=== PATIENT | male | born 1945 | race Caucasian/White ===

== ENCOUNTER 2018-07-05 05:51 | Inpatient (IN) ==
[2018-07-05] MEDS ORDERED: Metoprolol Tartrate 25 MG Tablet PO ONE (06:12)
[2018-07-05] MEDS ORDERED: Chlorhexidine Gluconate 2% 1 Pack (2 Cloths) TOPICAL ONE (06:12)
[2018-07-05] MEDS ORDERED: Sodium Chlor 0.9% Inj 500 ML IV.SIG SCH (07:00)
[2018-07-05] MEDS ORDERED: Vancomycin Inj 1,000 MG in Sodium Chlor 0.9% Inj 250 ML IV.SIG SCH (07:00)
[2018-07-05] MEDS ORDERED: Propofol Inj 500 MG/50 ML Vial ONE ×4 (07:17→13:31)
[2018-07-05] MEDS ORDERED: Gelatin Size 100 Topical Foam ONE (07:38)
[2018-07-05] MEDS ORDERED: Thrombin Topical Soln 5,000 UNIT Vial TOPICAL ONE (07:38)
[2018-07-05] MEDS ORDERED: Succinylcholine Inj 100 MG/5 ML Syringe IV.PUSH ONE (08:29)
[2018-07-05] MEDS ORDERED: Sodium Chlor 0.9% Inj 250 ML IV.CONT ONE (08:29)
[2018-07-05] MEDS ORDERED: Lidocaine PF 1% Inj 5 ML Syringe OTHER ONE (08:29)
[2018-07-05] MEDS ORDERED: Glycopyrrolate Inj 1 MG/5 ML Syringe IV.PUSH ONE (08:29)
[2018-07-05] MEDS ORDERED: Phenylephrine/NS 1000 MCG/10ML Syringe IV.PUSH ONE (08:29)
[2018-07-05] MEDS ORDERED: Bupivacaine/Epinephrine Inj 0.25% 50 ML Vial ONE (08:32)
[2018-07-05] MEDS ORDERED: Bupivacaine Liposomal PF 1.3% Inj 20 ML Vial ONE (08:52)
[2018-07-05 12:23] LABS: ABG Base Excess -2.5 mmol/L (-2-2); ABG PCO2 39 mmHg (38-42); ABG PO2 172 mmHG (61-120)
[2018-07-05] MEDS ORDERED: [UNRECOGNIZED DRUG - OTHER] IRRIGATION ONE ×3 (13:01)
[2018-07-05] MEDS ORDERED: SOD CHLORIDE 0.9% IRRIGATION ONE ×3 (13:01)
[2018-07-05] MEDS ORDERED: Acetaminophen 325 MG Tablet PO PRN (13:58)
[2018-07-05] MEDS ORDERED: Bisacodyl 10 MG Supp RECTAL PRN (13:58)
[2018-07-05] MEDS ORDERED: Bupivacaine Liposomal PF 1.3% Inj 20 ML Vial INFILTRATN ONE (13:59)
[2018-07-05] MEDS: Sod Chloride 0.9% Inj 1,000 ML IV.SIG SCH (14:44)
--- NOTE | 2018-07-05 14:55 | P.PCN ---
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
--- NOTE | 2018-07-05 15:58 | MP ---
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 PROCEDURE PERFORMED: Bilateral C5, C6, C7 and T1 laminectomies with foraminotomies with posterolateral fusion with spinal instrumentation from C5 through T1. SURGEON: Mehdi Terrell MD [employer] SUPERVISOR: mechanical engineering technician AMADO. ANESTHESIA: General endotracheal. ESTIMATED BLOOD LOSS: 400 mL. REPLACEMENT: None needed. COMPLICATIONS: None. PATHOLOGY: None sent. DISPOSITION: To PACU, stable. INDICATIONS FOR PROCEDURE: This is a 73-year-old white male who suffered with the above-stated diagnosis. Radiographic evaluation was consistent with the above-stated diagnosis. His clinical neurological presentation and examination correlated with the above-stated diagnosis. In any case, therapeutic options were discussed with the patient and his . The risks, benefits, limitations, complications, and alternatives of the above-stated operation were discussed and enumerated and no guarantees were afforded. He understood this and requested surgical intervention. Informed consent was obtained and the patient was brought to the operating room electively. PROCEDURE: The patient was brought to the operating room on a cart. He was intubated and after a sufficient plane of general endotracheal anesthesia was obtained, a Fernando catheter was placed as well as sequential compression devices. His head was placed in the Ring-Ke 3-point head holding fixation device. Throughout the procedure, intraoperative spinal cord monitoring was used to monitor the integrity of the neuraxis, which remained stable throughout the entire procedure. This was initiated following induction and prior to positioning the patient as well as throughout the entire operation and remained stable throughout. The patient was then placed in the prone position on a Rafat table. Pressure points were padded appropriately. He was secured to the table using the Ring headholder. In this way, rigid fixation was obtained. His occiput and posterior cervical region as well as upper thoracic region was then shaved, prepped and draped in a sterile fashion. An appropriate timeout procedure was performed. It should be noted that C-arm fluoroscopy was used throughout the procedure for localization as well as progress of placement of the spinal instrumentation. In any case, using C-arm fluoroscopy, we documented the appropriate level of the incision. An incision was made in the midline after infiltrating the skin and subcutaneous tissue with 10 mL of 0.25% bupivacaine with epinephrine. Prior to this, an appropriate timeout procedure was performed. The incision was brought down from C3 to T2 in the midline. The incision was brought down through the skin and subcutaneous tissue. Hemostasis was obtained with the use of monopolar coagulation. The fascia was incised and subperiosteal dissection was performed, stripping the paraspinal muscles laterally, exposing the spinous process and lamina and lateral masses of C4, C5, C6, C7, T1 and the uppermost portion of T2 bilaterally. Soft tissues were retracted using self-retaining retractors. C-arm fluoroscopy documented that we indeed exposed the appropriate levels. Lateral masses and facets were then decorticated using the ISBX electric drill and a round carbide bur. This was done from the inferior portion of C4 to the inferior portion of T1 to the top of T2 bilaterally. Lateral mass screws were then placed into the lateral masses of C5 and C6, and this was done bilaterally. Then, pedicle screws were placed into the pedicles of T1 bilaterally. Contoured rods were bent and placed through the heads of the screw and locking screws were then placed and in this way, rigid spinal fixation was obtained bilaterally. C-arm fluoroscopy assisted and aided in placement of the spinal instrumentation. It assisted us in guidance. Then, troughs were drilled using the ISBX electric drill and a matchstick carbide bur from C5 through T1 and an en bloc laminectomy was performed, removing the spinous process and lamina bilaterally of C5, C6, C7, and T1. Foraminotomies were then performed using 2 mm thin footplate Kerrison rongeurs. This was done at each of these levels. The dura elevated, the area decompressed and appeared to be adequately decompressed. Epidural bleeding was controlled with use of bipolar coagulation and Surgiflo and thrombin-soaked Gelfoam. It appeared that an adequate decompression was performed. The laminectomized bone was denuded of all soft tissue and with a bone mill, was morcellized and combined with 15 mL of cancellous bone allografts and mixed together. These were then placed posterolaterally overlying the lateral masses and facets from C4 to the top of T2. Prior to placing the bone graft, the wound was then copiously irrigated with warm bacitracin irrigation and hemostasis was meticulous. Through a separate stab wound, a #7 flat JERROD drain was placed into the epidural space and connected to closed drainage suction. It was secured to the skin using a 3-0 nylon suture. The wound was then approximated in layers. The muscle was approximated using multiple interrupted sutures of 0 Vicryl. The fascia was then approximated using multiple interrupted sutures of 0 Vicryl. The subcutaneous tissue was then approximated using multiple inverted interrupted sutures of 2-0 Vicryl. Skin was then approximated with skin adam. Antibiotic ointment and a sterile dressing were applied. Prior to closing the wound, the muscle was infiltrated as well as the subcutaneous tissue with 20 mL of Exparel diluted with 20 mL of normal saline and this was infiltrated in the muscles as well as subcutaneous tissue surrounding the wound bilaterally. In any case, antibiotic ointment and sterile dressing were applied. At the completion of the procedure, sponge count, needle count as well as cottonoid count was correct. Estimated blood loss was 100 mL. REPLACEMENT: None needed. COMPLICATIONS: Apparently none. The patient tolerated the procedure well and was taken directly to the postanesthetic care unit stable. It should be noted that the spinal instrumentation used in the case was the [employer] HyperLOX System. MD CAMILLE Shah/cassandra , 03:08 PM , 03:21 PM
--- NOTE | 2018-07-05 16:13 | P.CONCC ---
History of Present Illness Service: Critical care Consult date: 07/05/18 Requesting Physician: Mehdi Terrell Reason for Consult: s/p posterior cervical laminectomy Primary Care Provider: Elidia Guido MD, R2 Chief Complaint: Cervical stenosis with myelopathy History of Present Illness: Patient is a 73-year-old male with past medical history significant for hypertension, GERD, dyslipidemia, arthritis, cervical stenosis with myelopathy, daily alcohol use was admitted to Dr. Terrell service today to undergo posterior cervical laminectomy. Patient underwent Bilateral C5, C6, C7 and T1 laminectomies with foraminotomies, posterolateral fusion with spinal instrumentation from C5 through T1. Anesthesia records revealed EBL was 1 L, urine output was 150 mL in the OR. Received 3 L of crystalloids. Post procedure patient was extubated in the PACU. Care medicine was consulted with standard management. On my evaluation patient is extubated still under the influence of anesthesia. He is able to state his name, otherwise still somnolent. Additional history indicates that patient drinks 4-5 West[place] daily, last drink was yesterday. I will place him on multivitamin/thiamine supplementation and Ativan as needed Review of Systems All other systems reviewed negative except as stated in HPI PMFSH - History History Provided By: Patient - Medical History Medical History: Medical History (Last Reviewed 07/05/18 @ 16:11 by Declan Silva MD) Arthritis GERD (gastroesophageal reflux disease) Hypertension Neuropathy Unsteady gait - Surgical History Surgical History: Surgical History (Last Reviewed 07/05/18 @ 16:11 by Declan Silva MD) History of back surgery History of carpal tunnel surgery of right wrist - Tobacco History Second Hand Smoke Exposure: No Tobacco Use In Past 30 Days: No Smoking Status: Never smoker - Alcohol History How Often Do You Have a Drink Containing Alcohol: 4 or more times a week - Substance Use History Substance History: No History of Abuse - Travel History Recent Travel in the [place] Within the Last 8 Weeks: No Recent Travel Out of the Country Within the Last 8 Weeks: No Medications and Allergies Active Medications: Active Medications Acetaminophen (Tylenol) 650 mg PO Q4H PRN PRN Reason: TEMPERATURE > 101.5 F Hydrocodone Bitart/Acetaminophen (Mcneal 10/325) 1 tab PO Q4H PRN PRN Reason: Pain Scale 1 To 5 Al Hydroxide/Mg Hydroxide (Milk Of Leroy Pandaq) 30 ml PO Q12H PRN PRN Reason: Mild Constipation Albuterol (Albuterol Neb (Prn)) 2.5 mg NEB Q4HR NEB PRN PRN Reason: WHEEZING Amlodipine Besylate (Norvasc) 5 mg PO DAILY [facility] Bisacodyl (Dulcolax Supp) 10 mg RECTAL DAILY PRN PRN Reason: SEVERE CONSITIPATION Citalopram Hydrobromide (Celexa) 40 mg PO DAILY KAVITHA Clonidine HCl (Catapres) 0.1 mg PO Q6H PRN PRN Reason: SYS BP GREATER THAN 170 MMHG Cyclobenzaprine HCl (Flexeril) 10 mg PO Q8H PRN PRN Reason: MUSCLE SPASM Vancomycin HCl 1,000 mg/ (Sodium Chloride) 250 mls @ 250 mls/hr IV.SIG RIVER GUIDE [facility] Stop: 07/05/18 18:00 Last Infusion: 07/05/18 09:29 Dose: Infused Sodium Chloride (Ns Inj) 1,000 mls @ 30 mls/hr IV.SIG .Q24H [facility] Last Admin: 07/05/18 14:44 Dose: Not Given Lactated Ringer's (Lr 1000 Ml Inj) 1,000 mls @ 30 mls/hr IV.SIG .Q24H [facility] Stop: 07/06/18 06:14 Last Infusion: 07/05/18 10:30 Dose: Infused Sodium Chloride (Ns Inj) 500 mls @ 30 mls/hr IV.SIG .Q10H [facility] Last Admin: 07/05/18 07:20 Dose: Not Given Cefazolin Sodium/Dextrose (Ancef 2 Gm Premix Inj) 2 gm in 50 mls @ 100 mls/hr IV.SIG Q8H [facility] Stop: 07/06/18 08:29 Potassium Chloride/Sodium Chloride (Ns + Kcl 20 Meq Inj) 1,000 mls @ 100 mls/ hr IV.CONT .Q10H [facility] Multivitamins 10 ml/ Thiamine HCl 100 mg/ Folic Acid 1 mg/Sodium Chloride 511.2 mls @ 125 mls/hr IV.SIG Q24H [facility] Stop: 07/07/18 21:06 Lactulose (Lactulose Liq) 30 ml PO DAILY PRN PRN Reason: SEVERE CONSITIPATION Lisinopril (Prinivil) 20 mg PO DAILY [facility] Lorazepam (Ativan Inj) 1 mg IV.PUSH Q2H PRN PRN Reason: agitation, alcohol withdrawal Miscellaneous Information ([facility] [place] [facility]) 1 each OTHER UNSCH PRN PRN Reason: SEE LABEL COMMENTS Stop: 07/06/18 15:09 Morphine Sulfate (Morphine Inj) 2 mg IV.PUSH Q2H PRN PRN Reason: Pain Scale 1 to 6 Ondansetron HCl (Zofran Inj) 4 mg IV.PUSH Q6H PRN PRN Reason: NAUSEA OR VOMITING Pantoprazole Sodium (Protonix) 40 mg PO DAILY [facility] Pravastatin Sodium (Pravachol) 20 mg PO DAILY [facility] Senna/Docusate Sodium (Kelley-Colace) 1 tab PO BID [facility] Sennosides (Senokot) 17.2 mg PO Q12H PRN PRN Reason: Moderate Constipation Sodium Chloride (Ns Flush) 2 ml IV.FLUSH PRN PRN PRN Reason: FLUSH AFTER USING IV ACCESS Allergies Allergy/AdvReac Type Severity Reaction Status Date / Time No Known Allergies Allergy Verified 07/05/18 06:58 Home Medications Medication Instructions Recorded Confirmed Type amlodipine 5 mg PO DAILY 06/28/18 07/05/18 History citalopram 40 mg PO DAILY 06/28/18 07/05/18 History lisinopril 20 mg PO DAILY 06/28/18 07/05/18 History pantoprazole 40 mg PO DAILY 06/28/18 07/05/18 History pravastatin 20 mg PO DAILY 06/28/18 07/05/18 History Physical Exam Vital signs: Vital Signs 07/05/18 07:15 Temperature 99.6 F Pulse Rate 73 Respiratory Rate 20 Blood Pressure 142/84 H Pulse Oximetry 94 L Intake & Output 07/04/18 07/05/18 07/05/18 18:59 06:59 18:59 Intake Total 3250 / 3250 Output Total 1150 / 1150 Balance 2100 / 2100 Weight 108.2 kg Intake: IV 1250 / 1250 LR 1000 mL Inj 1,000 ML @ 30 1000 / 1000 mls/hr IV.SIG .Q24H K[facility]A Rx#: [id number] Vancomycin Inj 1,000 MG In NS 250 / 250 Inj 250 ML @ 250 mls/hr IV.SIG RIVER GUIDE KAVITHA Rx#:[id number] Anesthesia Amount 1999 / 1999 Output: Estimated Blood Loss 1000 / 1000 Urine Amount (Catheter) 150 / 150 Indwelling Urethral Catheter 150 / 150 Other: Weight On Admission 108.2 kg Narrative: GEN: Patient is extubated lying on PACU bed. Somnolent from residual anesthesia HEENT: Extraocular movements are grossly intact. Pupils are reactive. Oral cavity is moist NECK: Supple. Posterior cervical dressing intact, single drain in place with blood-tinged drainage LUNGS: Air entry equal bilaterally no wheezes or crackles HEART: S1 and S2 normal, no murmurs ABDOMEN: Soft. Nontender. No organomegaly EXTREMITIES: 2+ pedal edema. NEUROLOGIC: Limited exam due to somnolence from anesthesia. Patient is oriented to person. Wakes up to stimulation follows commands x4 - Urinary Catheter Management Indwelling Urethral Catheter Cath placed during this visit: yes Reason for continuing: Hourly intake/output Insertion date: 07/05/18 Insertion time: 08:50 Septic Shock Reassessment Septic shock perfusion: reassessment completed Assessment and Plan - Assessment and Plan Plan: ASSESSMENT: Status post posterior cervical laminectomy fusion instrumentation C5-T1 History of cervical spinal stenosis and myelopathy Arthritis GERD Hypertension Neuropathy PLAN: NEURO: -Postop management per Dr. Terrell -As needed morphine and hydrocodone as needed for pain -Watch closely for alcohol withdrawal -Ativan 1 mg every 2 hours as needed for anxiety/withdrawal -Supplement multivitamin thiamine for 3 days RESP: -DuoNeb every 2 hours as needed -Aggressive pulmonary toilet CV: -Normal saline IV fluids IV fluid -Resume antihypertensives when statin as clinically appropriate GI: -N.p.o. until cleared by neurosurgery : -Monitor renal function closely. Fernando catheter in place -IV Lasix 40 mg x1 ID: -Perioperative antibiotics per neurosurgery HEME: -Monitor CBC, coags ENDO: -Electrolyte replacement as needed PROPH: -Bilateral lower extremity SCDs. Chemical DVT prophylaxis when cleared by neurosurgery LINES: -Utilize peripheral IVs CC time 35 min Code Status: Full
[2018-07-05] MEDS ORDERED: *morphine SULFATE 4 MG/ML PERIprocedure ONLY ONE ×2 (16:35→17:59)
[2018-07-05] MEDS: ceFAZolin 2 GM Premix Inj 2 GM/50 ML PIGGYBACK IV.SIG SCH (16:55)
[2018-07-05] MEDS: Multivitamin Inj 10 ML, Thiamine Inj 100 MG, Folic Acid Inj 1 MG in Sodium Chlor 0.9% I... IV.SIG SCH (16:56)
[2018-07-05 19:20] LABS: Hematocrit 36.8 % (39.0-51.0); Hemoglobin 12.5 gm/dL (13.0-17.0); Mean Corpuscular Hemoglobin 32.5 pg (27.0-34.0); Mean Corpuscular Volume 95.3 fL (80.0-100.0); Mean Platelet Volume 8.8 fL (7.0-11.0); Platelet Count 189 th/mm3 (150-450); Red Blood Count 3.86 mil/mm3 (4.50-5.90); Red Cell Distribution Width 11.8 % (11.6-17.2); White Blood Count 13.4 th/mm3 (4.0-11.0)
[2018-07-05 19:44] LABS: Albumin 3.5 g/dL (3.4-5.0); Anion Gap 12 meq/L (5-15); Aspartate Aminotransferase 33 U/L (15-37); Blood Urea Nitrogen 14 mg/dL (7-18); Calcium 7.9 mg/dL (8.5-10.1); Carbon Dioxide 23.1 meq/L (21.0-32.0); Chloride 102 meq/L (98-107); Glomerular Filtration Rate 52 mL/min (>89); Glucose,Random 210 mg/dL (74-106); Potassium 4.4 meq/L (3.5-5.1); Sodium 137 meq/L (136-145)
[2018-07-05 19:45] LABS: Alanine Aminotransferase 55 U/L (12-78)
[2018-07-05 19:48] LABS: Alkaline Phosphatase 85 U/L (45-117); Total Protein 6.3 g/dL (6.4-8.2)
[2018-07-05] MEDS: Senna/Docusate Sodium 8.6/50 MG Tablet PO SCH (20:12)
[2018-07-06] MEDS: ceFAZolin 2 GM Premix Inj 2 GM/50 ML PIGGYBACK IV.SIG SCH ×2 (00:17→08:49)
[2018-07-06] MEDS: Morphine Sulfate Inj 2 MG/ML Vial IV.PUSH PRN ×3 (01:01→08:00)
--- NOTE | 2018-07-06 05:48 | CT ---
EXAM DATE: 07/06/2018 5:19 AM EST AGE/SEX: 73 years / Male INDICATIONS: Follow up cervical laminectomy CLINICAL DATA: This is the patient's initial encounter. Patient reports that signs and symptoms have been present for 1 day and indicates a pain score of 0/10. MEDICAL/SURGICAL HISTORY: None. . Cervical laminectomy RADIATION DOSE: 24.66 CTDI (mGy) COMPARISON: [facility], CT CERVICAL SPINE W/O CONTRAST, 07/04/2018. . TECHNIQUE: Contiguous axial images were obtained using helical multirow detector technique. The vol umetric data was post-processed with multiplanar reconstruction in oblique axial, sagittal, and coron al planes. Using automated exposure control and adjustment of the mA and/or kV according to patient s ize, radiation dose was kept as low as reasonably achievable to obtain optimal diagnostic quality vandana ges. DICOM format image data is available electronically for review and comparison. FINDINGS: Sagittal and coronal reconstruction show interval laminectomies from C5 through C7. A JERROD type drain i s identified posterior to the thecal sac. Posterior fixation with transpedicular screws at T1 and alessandra rt facet screws at C5-6 and C6-7 bilaterally. Grade 1 anterolisthesis of C3 on 4, C4 on 5 and C7 on T 1. Severe spinal stenosis identified previously at C6-7 appears to have been effectively decompressed . T1 spinous process fracture may be chronic. C2-3: The bony spinal canal is normal in size. No evidence of disc bulge or herniation. The neural foramina are bilaterally patent. C3-4: Bilateral facet hypertrophy, left greater than right. There is narrowing of both neural forami na which probably compromises both C4 nerve root. Spinal canal are adequate C4-5: Decompressive laminectomy with posterior fixation. However, marked facet hypertrophy which marcel rows both neural foramina and probably compromises both C5 nerve roots. C5-6: Some uncovertebral ridging and facet hypertrophy encroaches on both neural foramina which may be severe enough to compromise both C6 nerve roots. Decompressive laminectomy maintains the spinal ca nal C6-7: Facet hypertrophy with uncovertebral ridging narrows both neural foramina and may compromise b oth C7 nerve roots. Decompressive laminectomy is reestablished patency of the spinal canal. C7-T1: The bony spinal canal is normal in size. No evidence of disc bulge or herniation. The neura l foramina are bilaterally patent. CONCLUSION: 1. Postsurgical changes with three-level laminectomies from C5 through C7 and posterior fixation vero aterally at the same levels. JERROD type drain is positioned posterior to the thecal sac. Laminectomies h ave affectively decompressed the previously highly stenosed spinal canal, particularly at the C6-7 le seven. 2. However, predominantly due to facet hypertrophy, there is persistent foraminal narrowing which ma y be severe enough to compromise both C4, bilateral C5 and bilateral C6 and bilateral C7 nerve roots. Electronically signed by: Judson Prasad MD Board Certified Radiologist 07/06/2018 5:47 AM EST
[2018-07-06 07:08] LABS: Baso % (Auto) 0.1 % (0.0-2.0); Eos % (Auto) 0.3 % (0.0-4.0); Hemoglobin 11.3 gm/dL (13.0-17.0); Lymph # (Auto) 0.7 th/mm3 (1.0-4.8); Mean Corpuscular HGB Conc 35.2 % (32.0-36.0); Mean Corpuscular Hemoglobin 32.8 pg (27.0-34.0); Mean Corpuscular Volume 93.3 fL (80.0-100.0); Mean Platelet Volume 8.2 fL (7.0-11.0); Mono # (Auto) 1.4 th/mm3 (0.0-0.9); Mono % (Auto) 13.8 % (0.0-8.0); Neut # (Auto) 8.2 th/mm3 (1.8-7.7); Neut % (Auto) 78.8 % (16.0-70.0); Platelet Count 179 th/mm3 (150-450); Red Blood Count 3.43 mil/mm3 (4.50-5.90); Red Cell Distribution Width 11.9 % (11.6-17.2); White Blood Count 10.5 th/mm3 (4.0-11.0)
[2018-07-06 07:20] LABS: Calcium 7.9 mg/dL (8.5-10.1); Potassium 4.2 meq/L (3.5-5.1)
[2018-07-06] MEDS: Sod Chloride 0.9% Inj 1,000 ML IV.SIG SCH (07:45)
[2018-07-06] MEDS: amLODIPine 5 MG Tablet PO SCH (08:00)
[2018-07-06] MEDS: Lisinopril 20 MG Tablet PO SCH (08:01)
[2018-07-06] MEDS: Senna/Docusate Sodium 8.6/50 MG Tablet PO SCH ×2 (08:01→20:01)
[2018-07-06] MEDS ORDERED: Morphine Sulfate Inj 2 MG/ML Vial IV.PUSH ONE (09:15)
--- NOTE | 2018-07-06 09:42 | P.PNCC ---
Subjective Subjective Remarks/Hospital Course: Patient is a 73-year-old male with past medical history significant for hypertension, GERD, dyslipidemia, arthritis, cervical stenosis with myelopathy, daily alcohol use was admitted to Dr. Terrell service today to undergo posterior cervical laminectomy. Patient underwent Bilateral C5, C6, C7 and T1 laminectomies with foraminotomies, posterolateral fusion with spinal instrumentation from C5 through T1. Anesthesia records revealed EBL was 1 L, urine output was 150 mL in the OR. Received 3 L of crystalloids. Post procedure patient was extubated in the PACU. Care medicine was consulted with standard management. On my evaluation patient is extubated still under the influence of anesthesia. He is able to state his name, otherwise still somnolent. Additional history indicates that patient drinks 4-5 [place] daily, last drink was yesterday. I will place him on multivitamin/thiamine supplementation and Ativan as needed 07/06/18: Patient sitting up in bed moderate distress due to pain. I will increase the dose of morphine to 4 mg IV every [address] of the C- spine today shows Postsurgical changes with three-level laminectomies from C5 through C7 and posterior fixation bilaterally at the Laminectomies have affectively decompressed the previously highly stenosed spinal canal, however persistent foraminal narrowing which may be severe enough to compromise both C4 , bilateral C5 and bilateral C6 and bilateral C7 nerve roots. Objective Vital Signs / I&O: Vital Signs 07/05/18 15:05 07/05/18 15:15 07/05/18 15:30 Temperature 99.2 F Pulse Rate 91 H 97 H 93 H Respiratory Rate 15 15 19 Blood Pressure 113/67 144/73 H 126/70 Pulse Oximetry 97 97 96 07/05/18 15:45 07/05/18 16:00 07/05/18 17:00 Temperature 97.8 F Pulse Rate 88 84 79 Respiratory Rate 17 14 14 Blood Pressure 125/68 132/74 96/60 L Pulse Oximetry 96 95 97 07/05/18 18:00 07/05/18 19:04 07/05/18 19:05 Temperature Pulse Rate 85 82 Respiratory Rate 15 23 Blood Pressure 123/56 L 113/71 Pulse Oximetry 97 95 07/05/18 20:00 07/05/18 20:20 07/05/18 20:42 Temperature 97.9 F Pulse Rate 86 Respiratory Rate 17 17 Blood Pressure Pulse Oximetry 96 95 07/05/18 21:00 07/05/18 21:32 07/05/18 22:00 Temperature Pulse Rate 88 84 84 Respiratory Rate 22 17 14 Blood Pressure 104/65 104/65 110/60 Pulse Oximetry 96 94 L 92 L 07/05/18 23:00 07/05/18 23:30 07/06/18 00:00 Temperature 98.4 F Pulse Rate 91 H 91 H Respiratory Rate 16 13 Blood Pressure 138/64 122/71 120/72 Pulse Oximetry 94 L 92 L 07/06/18 01:00 07/06/18 02:00 07/06/18 03:00 Temperature Pulse Rate 91 H 91 H 87 Respiratory Rate 16 13 12 Blood Pressure 122/72 121/67 125/68 Pulse Oximetry 94 L 94 L 93 L 07/06/18 04:00 07/06/18 04:30 07/06/18 05:00 Temperature 98.5 F Pulse Rate 90 90 88 Respiratory Rate 15 15 16 Blood Pressure 135/76 134/73 125/71 Pulse Oximetry 93 L 93 L 94 L 07/06/18 05:30 07/06/18 06:00 07/06/18 06:30 Temperature Pulse Rate 89 87 Respiratory Rate 18 18 Blood Pressure 133/78 135/77 Pulse Oximetry 94 L 95 07/06/18 07:00 07/06/18 07:30 07/06/18 08:00 Temperature Pulse Rate 88 89 90 Respiratory Rate 19 18 18 Blood Pressure 138/78 144/79 H 144/77 H Pulse Oximetry 94 L 93 L 93 L 07/06/18 09:00 Temperature Pulse Rate 98 H Respiratory Rate 26 H Blood Pressure Pulse Oximetry 93 L Intake & Output 07/05/18 07/06/18 07/06/18 18:59 06:59 18:59 Intake Total 3250 / 3250 2451.2 / 2451.2 50 / 50 Output Total 2770 / 2770 1140 / 1140 Balance 480 / 480 1311.2 / 1311.2 50 / 50 Weight 111.5 kg Intake: IV 1250 / 1250 1611.2 / 1611.2 50 / 50 NS + KCl 20 mEq Inj 1,000 ML @ 1000 / 1000 100 mls/hr IV.CONT .Q10H [facility] Rx #:[id number] LR 1000 mL Inj 1,000 ML @ 30 1000 / 1000 mls/hr IV.SIG .Q24H [facility] Rx#: [id number] MVI-12 Inj 10 ML Thiamine Inj 511.2 / 511.2 100 MG Folvite Inj 1 MG In NS Inj 500 ML @ 125 mls/hr IV.SIG Q24H [facility] Rx#:[id number] Vancomycin Inj 1,000 MG In NS 250 / 250 Inj 250 ML @ 250 mls/hr IV.SIG [employer]GER [facility] Rx#:[id number] Ancef 2 GM Premix Inj 2 gm In 100 / 100 50 / 50 50 ml @ 100 mls/hr IV.SIG Q8H [facility] Rx#:[id number] Oral 840 / 840 Anesthesia Amount 1999 / 1999 Output: Estimated Blood Loss 1000 / 1000 Urine Amount (Catheter) 1650 / 1650 975 / 975 Indwelling Urethral Catheter 1650 / 1650 975 / 975 Wound Drainage 120 / 120 165 / 165 # 1 Posterior Neck JERROD Drain 120 / 120 165 / 165 Other: Date of Last Bowel Movement 07/05/18 07/05/18 # Bowel Movements 0 # Incontinent Bowel Movements 0 Result Diagrams: 07/06/18 06:48 07/06/18 06:48 Objective Remarks: GEN: Patient is sitting up in ICU bed moderate distress due to pain HEENT: Extraocular movements are grossly intact. Pupils are reactive. Oral cavity is moist NECK: Supple. Posterior cervical dressing intact, single drain in place with blood-tinged drainage 285 mL output. Per charting. LUNGS: Air entry equal bilaterally no wheezes or crackles HEART: S1 and S2 normal, no murmurs ABDOMEN: Soft. Nontender. No organomegaly EXTREMITIES: 2+ pedal edema. NEUROLOGIC: Awake alert oriented x3. No focal deficits moves all 4 extremities following commands Assessment and Plan - Assessment and Plan Plan: ASSESSMENT: Status post posterior cervical laminectomy fusion instrumentation C5-T1 History of cervical spinal stenosis and myelopathy Arthritis GERD Hypertension Neuropathy PLAN: NEURO: -Postop management per Dr. Terrell -As needed morphine and hydrocodone as needed for pain. Morphine increased to 4 mg IV every 2 hours as needed -Follow-up CT shows excellent decompression of the spinal stenosis, however with persistent foraminal narrowing which may be severe enough to compromise both C4, bilateral C5 and bilateral C6 and bilateral C7 nerve roots. -Further management per neurosurgery -Watch closely for alcohol withdrawal -Ativan 1 mg every 2 hours as needed for anxiety/withdrawal -Supplement multivitamin thiamine for 3 days RESP: -DuoNeb every 2 hours as needed -Aggressive pulmonary toilet CV: -Normal saline IV fluids -will DC today as the patient has peripheral edema -Continue home antihypertensive GI: -Regular diet : -Monitor renal function closely. ID: -Perioperative antibiotics per neurosurgery HEME: -Monitor CBC, coags ENDO: -Electrolyte replacement as needed PROPH: -Bilateral lower extremity SCDs. Chemical DVT prophylaxis when cleared by neurosurgery LINES: -Utilize peripheral IVs Level 2 follow up. Neurosurgery has ordered transfer to neuro floor. Critical care will sign off
--- NOTE | 2018-07-06 10:15 | P.PNNS ---
Subjective Interval history: reports to be doing well, surgical pain controlled, no new neurological complaints <Janie Gardner - Last Filed: 07/06/18 10:10> Physical Exam Vital signs: Vital Signs 07/05/18 15:05 07/05/18 15:15 07/05/18 15:30 Temperature 99.2 F Pulse Rate 91 H 97 H 93 H Respiratory Rate 15 15 19 Blood Pressure 113/67 144/73 H 126/70 Pulse Oximetry 97 97 96 07/05/18 15:45 07/05/18 16:00 07/05/18 17:00 Temperature 97.8 F Pulse Rate 88 84 79 Respiratory Rate 17 14 14 Blood Pressure 125/68 132/74 96/60 L Pulse Oximetry 96 95 97 07/05/18 18:00 07/05/18 19:04 07/05/18 19:05 Temperature Pulse Rate 85 82 Respiratory Rate 15 23 Blood Pressure 123/56 L 113/71 Pulse Oximetry 97 95 07/05/18 20:00 07/05/18 20:20 07/05/18 20:42 Temperature 97.9 F Pulse Rate 86 Respiratory Rate 17 17 Blood Pressure Pulse Oximetry 96 95 07/05/18 21:00 07/05/18 21:32 07/05/18 22:00 Temperature Pulse Rate 88 84 84 Respiratory Rate 22 17 14 Blood Pressure 104/65 104/65 110/60 Pulse Oximetry 96 94 L 92 L 07/05/18 23:00 07/05/18 23:30 07/06/18 00:00 Temperature 98.4 F Pulse Rate 91 H 91 H Respiratory Rate 16 13 Blood Pressure 138/64 122/71 120/72 Pulse Oximetry 94 L 92 L 07/06/18 01:00 07/06/18 02:00 07/06/18 03:00 Temperature Pulse Rate 91 H 91 H 87 Respiratory Rate 16 13 12 Blood Pressure 122/72 121/67 125/68 Pulse Oximetry 94 L 94 L 93 L 07/06/18 04:00 07/06/18 04:30 07/06/18 05:00 Temperature 98.5 F Pulse Rate 90 90 88 Respiratory Rate 15 15 16 Blood Pressure 135/76 134/73 125/71 Pulse Oximetry 93 L 93 L 94 L 07/06/18 05:30 07/06/18 06:00 07/06/18 06:30 Temperature Pulse Rate 89 87 Respiratory Rate 18 18 Blood Pressure 133/78 135/77 Pulse Oximetry 94 L 95 07/06/18 07:00 07/06/18 07:30 07/06/18 08:00 Temperature Pulse Rate 88 89 90 Respiratory Rate 19 18 18 Blood Pressure 138/78 144/79 H 144/77 H Pulse Oximetry 94 L 93 L 93 L 07/06/18 09:00 Temperature Pulse Rate 98 H Respiratory Rate 26 H Blood Pressure Pulse Oximetry 93 L Intake & Output 07/05/18 07/06/18 07/06/18 18:59 06:59 18:59 Intake Total 3250 / 3250 2451.2 / 2451.2 50 / 50 Output Total 2770 / 2770 1140 / 1140 Balance 480 / 480 1311.2 / 1311.2 50 / 50 Weight 111.5 kg Intake: IV 1250 / 1250 1611.2 / 1611.2 50 / 50 NS + KCl 20 mEq Inj 1,000 ML @ 1000 / 1000 100 mls/hr IV.CONT .Q10H [facility] Rx #:[id number] LR 1000 mL Inj 1,000 ML @ 30 1000 / 1000 mls/hr IV.SIG .Q24H [facility] Rx#: [id number] MVI-12 Inj 10 ML Thiamine Inj 511.2 / 511.2 100 MG Folvite Inj 1 MG In NS Inj 500 ML @ 125 mls/hr IV.SIG Q24H [facility] Rx#:[id number] Vancomycin Inj 1,000 MG In NS 250 / 250 Inj 250 ML @ 250 mls/hr IV.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 [facility] Rx#:[id number] Ancef 2 GM Premix Inj 2 gm In 100 / 100 50 / 50 50 ml @ 100 mls/hr IV.SIG Q8H [facility] Rx#:[id number] Oral 840 / 840 Anesthesia Amount 1999 / 1999 Output: Estimated Blood Loss 1000 / 1000 Urine Amount (Catheter) 1650 / 1650 975 / 975 Indwelling Urethral Catheter 1650 / 1650 975 / 975 Wound Drainage 120 / 120 165 / 165 # 1 Posterior Neck JERROD Drain 120 / 120 165 / 165 Other: Date of Last Bowel Movement 07/05/18 07/05/18 # Bowel Movements 0 # Incontinent Bowel Movements 0 Narrative: awake, alert normal speech wound with clean, dry dressing drain in place with serosanguineous drainage with 285 cc output motor: 5/5 bilateral deltoid, biceps, triceps, 4+ to 5- b/l hands. 4/5 b/l LEs sensory intact to light touch x 4 - Urinary Catheter Management Indwelling Urethral Catheter Cath placed during this visit: yes Reason for continuing: Hourly intake/output Insertion date: 07/05/18 Insertion time: 08:50 <Janie Gardner - Last Filed: 07/06/18 10:10> Vital signs: Vital Signs 07/05/18 18:00 07/05/18 19:04 07/05/18 19:05 Temperature Pulse Rate 85 82 Respiratory Rate 15 23 Blood Pressure 123/56 L 113/71 Pulse Oximetry 97 95 07/05/18 20:00 07/05/18 20:20 07/05/18 20:42 Temperature 97.9 F Pulse Rate 86 Respiratory Rate 17 17 Blood Pressure Pulse Oximetry 96 95 07/05/18 21:00 07/05/18 21:32 07/05/18 22:00 Temperature Pulse Rate 88 84 84 Respiratory Rate 22 17 14 Blood Pressure 104/65 104/65 110/60 Pulse Oximetry 96 94 L 92 L 07/05/18 23:00 07/05/18 23:30 07/06/18 00:00 Temperature 98.4 F Pulse Rate 91 H 91 H Respiratory Rate 16 13 Blood Pressure 138/64 122/71 120/72 Pulse Oximetry 94 L 92 L 07/06/18 01:00 07/06/18 02:00 07/06/18 03:00 Temperature Pulse Rate 91 H 91 H 87 Respiratory Rate 16 13 12 Blood Pressure 122/72 121/67 125/68 Pulse Oximetry 94 L 94 L 93 L 07/06/18 04:00 07/06/18 04:30 07/06/18 05:00 Temperature 98.5 F Pulse Rate 90 90 88 Respiratory Rate 15 15 16 Blood Pressure 135/76 134/73 125/71 Pulse Oximetry 93 L 93 L 94 L 07/06/18 05:30 07/06/18 06:00 07/06/18 06:30 Temperature Pulse Rate 89 87 Respiratory Rate 18 18 Blood Pressure 133/78 135/77 Pulse Oximetry 94 L 95 07/06/18 07:00 07/06/18 07:30 07/06/18 08:00 Temperature Pulse Rate 88 89 90 Respiratory Rate 19 18 18 Blood Pressure 138/78 144/79 H 144/77 H Pulse Oximetry 94 L 93 L 93 L 07/06/18 09:00 07/06/18 09:36 07/06/18 10:00 Temperature Pulse Rate 98 H 93 H 96 H Respiratory Rate 26 H 20 19 Blood Pressure 122/68 130/67 Pulse Oximetry 93 L 94 L 95 07/06/18 10:41 07/06/18 10:44 07/06/18 11:00 Temperature Pulse Rate 87 87 Respiratory Rate 17 19 Blood Pressure 131/71 132/70 Pulse Oximetry 92 L 93 L 07/06/18 12:00 07/06/18 13:00 07/06/18 14:00 Temperature Pulse Rate 85 88 92 H Respiratory Rate 15 21 16 Blood Pressure 129/75 142/62 H 138/68 Pulse Oximetry 91 L 92 L 92 L 07/06/18 15:00 07/06/18 16:00 07/06/18 17:00 Temperature Pulse Rate 93 H 90 90 Respiratory Rate 24 17 19 Blood Pressure 142/71 H 142/74 H 131/77 Pulse Oximetry 91 L 92 L 91 L Intake & Output 07/05/18 07/06/18 07/06/18 18:59 06:59 18:59 Intake Total 3250 / 3250 2451.2 / 2451.2 650 / 650 Output Total 2770 / 2770 1140 / 1140 1860 / 1860 Balance 480 / 480 1311.2 / 1311.2 -1210 / -1210 Weight 111.5 kg Intake: IV 1250 / 1250 1611.2 / 1611.2 650 / 650 NS + KCl 20 mEq Inj 1,000 ML @ 1000 / 1000 600 / 600 100 mls/hr IV.CONT .Q10H [facility] Rx #:[id number] LR 1000 mL Inj 1,000 ML @ 30 1000 / 1000 mls/hr IV.SIG .Q24H [facility] Rx#: [id number] MVI-12 Inj 10 ML Thiamine Inj 511.2 / 511.2 100 MG Folvite Inj 1 MG In NS Inj 500 ML @ 125 mls/hr IV.SIG Q24H [facility] Rx#:[id number] Vancomycin Inj 1,000 MG In NS 250 / 250 Inj 250 ML @ 250 mls/hr IV.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 [facility] Rx#:[id number] Ancef 2 GM Premix Inj 2 gm In 100 / 100 50 / 50 50 ml @ 100 mls/hr IV.SIG Q8H [facility] Rx#:[id number] Oral 840 / 840 Anesthesia Amount 1999 / 1999 Output: Estimated Blood Loss 1000 / 1000 Urine Amount (Catheter) 1650 / 1650 975 / 975 1650 / 1650 Indwelling Urethral Catheter 1650 / 1650 975 / 975 1650 / 1650 Wound Drainage 120 / 120 165 / 165 210 / 210 # 1 Posterior Neck JERROD Drain 120 / 120 165 / 165 210 / 210 Other: Date of Last Bowel Movement 07/05/18 07/05/18 # Bowel Movements 0 # Incontinent Bowel Movements 0 - Urinary Catheter Management Indwelling Urethral Catheter Cath placed during this visit: no <Mehdi Terrell - Last Filed: 07/06/18 17:45> Assessment and Plan - Plan 73 y/o male underwent Bilateral C5-C6-C7 and T1 laminectomies with foraminotomies with a posterior lateral fusion with spinal instrumented from C5 through T1 on 07/05/[address] Terrell 07/06/2018 POD #1 neurologically stable, postoperative CT Cervical spine reviewed by neurosurgical team, postop labs reviewed, stable continue current postoperative pain control continue wound draining PT, OT, start mobilizing out of bed transfer out [facility] to will follow <Janie Gardner - Last Filed: 07/06/18 10:10> - Attending Attestation July 06, 2018 I personally interviewed and examined the patient. I reviewed the documentation , laboratory evaluation, and the imaging. I discussed case with the neurosurgery team we formulated a plan which is as described above. This patient is now stable postoperative day #1. He can be mobilized and transferred to the floor. He requires physical and occupational therapy consultations for evaluation and treatment as well as a case management consultation for discharge planning. He might require transfer for a course of inpatient rehabilitation. I will follow. <Mehdi Terrell - Last Filed: 07/06/18 17:45>
[2018-07-06] MEDS: Morphine Inj 4 MG/ML Vial IV.PUSH PRN ×3 (14:21→19:58)
[2018-07-06] MEDS: Multivitamin Inj 10 ML, Thiamine Inj 100 MG, Folic Acid Inj 1 MG in Sodium Chlor 0.9% I... IV.SIG SCH (16:54)
[2018-07-07] MEDS: Morphine Inj 4 MG/ML Vial IV.PUSH PRN ×8 (00:35→20:02)
[2018-07-07] MEDS: Lisinopril 20 MG Tablet PO SCH (08:03)
[2018-07-07] MEDS: amLODIPine 5 MG Tablet PO SCH (08:04)
[2018-07-07] MEDS: Senna/Docusate Sodium 8.6/50 MG Tablet PO SCH ×2 (08:04→20:09)
[2018-07-07 08:20] LABS: Baso % (Auto) 0.4 % (0.0-2.0); Eos # (Auto) 0.3 th/mm3 (0.0-0.4); Eos % (Auto) 2.9 % (0.0-4.0); Hematocrit 31.1 % (39.0-51.0); Hemoglobin 10.9 gm/dL (13.0-17.0); Lymph # (Auto) 0.9 th/mm3 (1.0-4.8); Lymph % (Auto) 10.2 % (9.0-44.0); Mean Corpuscular HGB Conc 35.1 % (32.0-36.0); Mean Corpuscular Hemoglobin 33.2 pg (27.0-34.0); Mean Corpuscular Volume 94.5 fL (80.0-100.0); Mono # (Auto) 1.6 th/mm3 (0.0-0.9); Mono % (Auto) 17.6 % (0.0-8.0); Neut # (Auto) 6.2 th/mm3 (1.8-7.7); Neut % (Auto) 68.9 % (16.0-70.0); Platelet Count 167 th/mm3 (150-450); Red Blood Count 3.29 mil/mm3 (4.50-5.90); Red Cell Distribution Width 11.9 % (11.6-17.2)
[2018-07-07 08:30] LABS: Calcium 8.3 mg/dL (8.5-10.1); Potassium 4.6 meq/L (3.5-5.1)
--- NOTE | 2018-07-07 12:07 | P.PNNS ---
Subjective Interval history: no changes overnight <JjJanie - Last Filed: 07/07/18 11:55> Physical Exam Vital signs: Vital Signs 07/06/18 12:00 07/06/18 13:00 07/06/18 14:00 Temperature Pulse Rate 85 88 92 H Respiratory Rate 15 21 16 Blood Pressure 129/75 142/62 H 138/68 Pulse Oximetry 91 L 92 L 92 L 07/06/18 15:00 07/06/18 16:00 07/06/18 17:00 Temperature Pulse Rate 93 H 90 90 Respiratory Rate 24 17 19 Blood Pressure 142/71 H 142/74 H 131/77 Pulse Oximetry 91 L 92 L 91 L 07/06/18 19:00 07/06/18 20:00 07/06/18 22:00 Temperature 98.5 F Pulse Rate 88 85 79 Respiratory Rate 21 18 12 Blood Pressure 132/77 Pulse Oximetry 92 L 93 L 92 L 07/06/18 23:00 07/07/18 00:00 07/07/18 01:37 Temperature 99.4 F Pulse Rate 83 Respiratory Rate 15 19 Blood Pressure 129/76 141/81 H Pulse Oximetry 92 L 07/07/18 03:00 07/07/18 04:00 07/07/18 05:00 Temperature 97.9 F Pulse Rate 83 83 Respiratory Rate 12 12 Blood Pressure 124/74 137/81 Pulse Oximetry 94 L 07/07/18 06:00 07/07/18 07:00 07/07/18 07:42 Temperature 98.4 F Pulse Rate 81 81 81 Respiratory Rate 15 15 18 Blood Pressure 144/72 H Pulse Oximetry 96 96 96 07/07/18 08:00 07/07/18 09:00 Temperature Pulse Rate 80 81 Respiratory Rate 13 13 Blood Pressure Pulse Oximetry 95 95 Intake & Output 07/06/18 07/07/18 07/07/18 18:59 06:59 18:59 Intake Total 650 / 650 1231.2 / 1231.2 Output Total 1860 / 1860 2550 / 2550 Balance -1210 / -1210 -1318.8 / -1318.8 Weight 113.4 kg Intake: IV 650 / 650 511.2 / 511.2 NS + KCl 20 mEq Inj 1,000 ML @ 600 / 600 100 mls/hr IV.CONT .Q10H [facility] Rx #:[id number] MVI-12 Inj 10 ML Thiamine Inj 511.2 / 511.2 100 MG Folvite Inj 1 MG In NS Inj 500 ML @ 125 mls/hr IV.SIG Q24H [facility] Rx#:[id number] Ancef 2 GM Premix Inj 2 gm In 50 / 50 50 ml @ 100 mls/hr IV.SIG Q8H [facility] Rx#:[id number] Oral 720 / 720 Output: Urine Amount (Catheter) 1650 / 1650 2400 / 2400 Indwelling Urethral Catheter 1650 / 1650 2400 / 2400 Wound Drainage 210 / 210 150 / 150 # 1 Posterior Neck JERROD Drain 210 / 210 150 / 150 Other: Date of Last Bowel Movement 07/05/18 07/05/18 07/05/18 # Bowel Movements 0 # Incontinent Bowel Movements 0 Narrative: awake, alert normal speech wound clean and dry, adam intact drain in place with serosanguineous drainage with 125 cc output motor: 5/5 bilateral deltoid, biceps, triceps, 4+ to 5- b/l hands. 4/5 b/l LEs sensory intact to light touch x 4 - Urinary Catheter Management Indwelling Urethral Catheter Cath placed during this visit: yes Reason for continuing: Hourly intake/output Insertion date: 07/05/18 Insertion time: 08:50 <Janie Gardner - Last Filed: 07/07/18 11:55> Vital signs: Vital Signs 07/06/18 13:00 07/06/18 14:00 07/06/18 15:00 Temperature Pulse Rate 88 92 H 93 H Respiratory Rate 21 16 24 Blood Pressure 142/62 H 138/68 142/71 H Pulse Oximetry 92 L 92 L 91 L 07/06/18 16:00 07/06/18 17:00 07/06/18 19:00 Temperature Pulse Rate 90 90 88 Respiratory Rate 17 19 21 Blood Pressure 142/74 H 131/77 Pulse Oximetry 92 L 91 L 92 L 07/06/18 20:00 07/06/18 22:00 07/06/18 23:00 Temperature 98.5 F Pulse Rate 85 79 Respiratory Rate 18 12 Blood Pressure 132/77 129/76 Pulse Oximetry 93 L 92 L 07/07/18 00:00 07/07/18 01:37 07/07/18 03:00 Temperature 99.4 F Pulse Rate 83 Respiratory Rate 15 19 Blood Pressure 141/81 H 124/74 Pulse Oximetry 92 L 07/07/18 04:00 07/07/18 05:00 07/07/18 06:00 Temperature 97.9 F Pulse Rate 83 83 81 Respiratory Rate 12 12 15 Blood Pressure 137/81 Pulse Oximetry 94 L 96 07/07/18 07:00 07/07/18 07:42 07/07/18 08:00 Temperature 98.4 F Pulse Rate 81 81 80 Respiratory Rate 15 18 13 Blood Pressure 144/72 H Pulse Oximetry 96 96 95 07/07/18 09:00 Temperature Pulse Rate 81 Respiratory Rate 13 Blood Pressure Pulse Oximetry 95 Intake & Output 07/06/18 07/07/18 07/07/18 18:59 06:59 18:59 Intake Total 650 / 650 1231.2 / 1231.2 Output Total 1860 / 1860 2550 / 2550 Balance -1210 / -1210 -1318.8 / -1318.8 Weight 113.4 kg Intake: IV 650 / 650 511.2 / 511.2 NS + KCl 20 mEq Inj 1,000 ML @ 600 / 600 100 mls/hr IV.CONT .Q10H [facility] Rx #:[id number] MVI-12 Inj 10 ML Thiamine Inj 511.2 / 511.2 100 MG Folvite Inj 1 MG In NS Inj 500 ML @ 125 mls/hr IV.SIG Q24H [facility] Rx#:[id number] Ancef 2 GM Premix Inj 2 gm In 50 / 50 50 ml @ 100 mls/hr IV.SIG Q8H [facility] Rx#:[id number] Oral 720 / 720 Output: Urine Amount (Catheter) 1650 / 1650 2400 / 2400 Indwelling Urethral Catheter 1650 / 1650 2400 / 2400 Wound Drainage 210 / 210 150 / 150 # 1 Posterior Neck JERROD Drain 210 / 210 150 / 150 Other: Date of Last Bowel Movement 07/05/18 07/05/18 07/05/18 # Bowel Movements 0 # Incontinent Bowel Movements 0 - Urinary Catheter Management Indwelling Urethral Catheter Cath placed during this visit: no <Mehdi Terrell - Last Filed: 07/07/18 12:17> Assessment and Plan - Plan 73 y/o male underwent Bilateral C5-C6-C7 and T1 laminectomies with foraminotomies with a posterior lateral fusion with spinal instrumented from C5 through T1 on 07/05/[address] Terrell 07/06/2018 POD #1 neurologically stable, postoperative CT Cervical spine reviewed by neurosurgical team, postop labs reviewed, stable continue current postoperative pain control continue wound draining PT, OT, start mobilizing out of bed transfer out of [facility] to [facility] will follow 07/07/2018 POD#2 Maintaining JERROD drain, monitor output PT/OT Postop labs reviewed Followup labs tomorrow morning Mobilize out of bed D/C kang Awaiting transfer to floor visualized wound, clean and dry will follow <Janie Gardner - Last Filed: 07/07/18 11:55> - Attending Attestation July 07, 2018 As above, I personally interviewed and examined the patient. I reviewed the documentation, laboratory evaluation, and the imaging. I discussed the case with the neurosurgery team and we formulated the plan. The patient is stable postoperative day #2. His postoperative laboratory evaluation is stable. I discussed discharge planning with him and he wishes to be discharged home instead of going to inpatient rehabilitation. He will require a case management consultation and arrangements should be made for home health care including a visiting nurse, nurses aide, and home physical therapy and occupational therapy. I will follow. <Mehdi Terrell - Last Filed: 07/07/18 12:17>
[2018-07-07] MEDS: Multivitamin Inj 10 ML, Thiamine Inj 100 MG, Folic Acid Inj 1 MG in Sodium Chlor 0.9% I... IV.SIG SCH (17:53)
[2018-07-08 08:06] LABS: Baso % (Auto) 0.2 % (0.0-2.0); Eos # (Auto) 0.3 th/mm3 (0.0-0.4); Eos % (Auto) 3.3 % (0.0-4.0); Hematocrit 29.7 % (39.0-51.0); Hemoglobin 10.1 gm/dL (13.0-17.0); Lymph # (Auto) 0.8 th/mm3 (1.0-4.8); Lymph % (Auto) 10.7 % (9.0-44.0); Mean Corpuscular HGB Conc 33.8 % (32.0-36.0); Mean Corpuscular Hemoglobin 32.2 pg (27.0-34.0); Mean Corpuscular Volume 95.3 fL (80.0-100.0); Mean Platelet Volume 8.2 fL (7.0-11.0); Mono # (Auto) 1.2 th/mm3 (0.0-0.9); Mono % (Auto) 15.1 % (0.0-8.0); Neut # (Auto) 5.4 th/mm3 (1.8-7.7); Neut % (Auto) 70.7 % (16.0-70.0); Platelet Count 177 th/mm3 (150-450); Red Blood Count 3.12 mil/mm3 (4.50-5.90); Red Cell Distribution Width 11.8 % (11.6-17.2); White Blood Count 7.7 th/mm3 (4.0-11.0)
[2018-07-08 08:31] LABS: Calcium 8.3 mg/dL (8.5-10.1); Carbon Dioxide 29.6 meq/L (21.0-32.0); Potassium 4.5 meq/L (3.5-5.1)
--- NOTE | 2018-07-08 10:44 | P.PNNS ---
Subjective Interval history: doing well, improving neurologically, urinating, and ambulated yesterday with PT. c/o constipation <Janie Gardner - Last Filed: 07/08/18 10:36> Physical Exam Vital signs: Vital Signs 07/07/18 11:00 07/07/18 11:41 07/07/18 11:49 Temperature Pulse Rate Respiratory Rate Blood Pressure 127/76 Pulse Oximetry 96 95 07/07/18 12:00 07/07/18 13:00 07/07/18 14:00 Temperature 99.1 F Pulse Rate 78 80 84 Respiratory Rate 17 12 13 Blood Pressure Pulse Oximetry 07/07/18 15:00 07/07/18 16:00 07/07/18 17:00 Temperature Pulse Rate 78 90 85 Respiratory Rate 13 19 17 Blood Pressure Pulse Oximetry 07/07/18 17:56 07/07/18 18:00 07/07/18 20:00 Temperature 99.3 F 99.6 F Pulse Rate 82 85 85 Respiratory Rate 18 18 22 Blood Pressure 131/69 128/68 Pulse Oximetry 90 L 07/07/18 23:27 07/08/18 00:40 07/08/18 04:40 Temperature 98.3 F 98.1 F Pulse Rate 88 81 Respiratory Rate 18 20 18 Blood Pressure 141/67 H 152/81 H Pulse Oximetry 94 L 95 07/08/18 07:20 Temperature 98.2 F Pulse Rate 81 Respiratory Rate 20 Blood Pressure 146/78 H Pulse Oximetry 94 L Intake & Output 07/07/18 07/08/18 07/08/18 18:59 06:59 18:59 Intake Total 1200 / 1200 511.2 / 511.2 Output Total 690 / 690 660 / 660 Balance 510 / 510 -148.8 / -148.8 Weight 144.4 kg Intake: IV 511.2 / 511.2 MVI-12 Inj 10 ML Thiamine Inj 511.2 / 511.2 100 MG Folvite Inj 1 MG In NS Inj 500 ML @ 125 mls/hr IV.SIG Q24H [facility] Rx#:[id number] Oral 1200 / 1200 Output: Urine 600 / 600 Urine Amount (Catheter) 600 / 600 Indwelling Urethral Catheter 600 / 600 Wound Drainage 90 / 90 60 / 60 # 1 Posterior Neck JERROD Drain 60 / 60 Other: Date of Last Bowel Movement 07/05/18 07/05/18 Narrative: awake, alert normal speech wound clean and dry, adam intact drain in place with serosanguineous drainage with 125 cc output motor: 5/5 bilateral deltoid, biceps, triceps, 4+ to 5- b/l hands. 4/5 b/l LEs sensory intact to light touch x 4 - Urinary Catheter Management Indwelling Urethral Catheter Cath placed during this visit: yes, but has since been removed by the nurse Reason for continuing: Hourly intake/output Insertion date: 07/05/18 Insertion time: 08:50 Removal date: 07/07/18 Removal time: 10:00 Straight Cath placed during this visit: yes, but has since been removed by the nurse Reason for continuing: Not indwelling catheter Insertion date: 07/07/18 Insertion time: 20:30 Removal date: 07/07/18 Removal time: 20:50 <Janie Gardner - Last Filed: 07/08/18 10:36> Vital signs: Vital Signs 07/07/18 17:56 07/07/18 18:00 07/07/18 20:00 Temperature 99.3 F 99.6 F Pulse Rate 82 85 85 Respiratory Rate 18 18 22 Blood Pressure 131/69 128/68 Pulse Oximetry 90 L 07/07/18 23:27 07/08/18 00:40 07/08/18 04:40 Temperature 98.3 F 98.1 F Pulse Rate 88 81 Respiratory Rate 18 20 18 Blood Pressure 141/67 H 152/81 H Pulse Oximetry 94 L 95 07/08/18 07:20 07/08/18 15:25 Temperature 98.2 F 98.3 F Pulse Rate 81 87 Respiratory Rate 20 18 Blood Pressure 146/78 H 154/75 H Pulse Oximetry 94 L 95 Intake & Output 07/07/18 07/08/18 07/08/18 18:59 06:59 18:59 Intake Total 1200 / 1200 511.2 / 511.2 Output Total 690 / 690 660 / 660 Balance 510 / 510 -148.8 / -148.8 Weight 144.4 kg Intake: IV 511.2 / 511.2 MVI-12 Inj 10 ML Thiamine Inj 511.2 / 511.2 100 MG Folvite Inj 1 MG In NS Inj 500 ML @ 125 mls/hr IV.SIG Q24H [facility] Rx#:[id number] Oral 1200 / 1200 Output: Urine 600 / 600 Urine Amount (Catheter) 600 / 600 Indwelling Urethral Catheter 600 / 600 Wound Drainage 90 / 90 60 / 60 # 1 Posterior Neck JERROD Drain 90 / 90 60 / 60 Other: Date of Last Bowel Movement 07/05/18 07/05/18 - Urinary Catheter Management Indwelling Urethral Catheter Cath placed during this visit: no Straight Cath placed during this visit: no <Mehdi Terrell - Last Filed: 07/08/18 17:21> Assessment and Plan - Plan 73 y/o male underwent Bilateral C5-C6-C7 and T1 laminectomies with foraminotomies with a posterior lateral fusion with spinal instrumented from C5 through T1 on 07/05/[address] Terrell 07/06/2018 POD #1 neurologically stable, postoperative CT Cervical spine reviewed by neurosurgical team, postop labs reviewed, stable continue current postoperative pain control continue wound draining PT, OT, start mobilizing out of bed transfer out of [facility] to 5N will follow 07/07/2018 POD#2 Maintaining JERROD drain, monitor output PT/OT Postop labs reviewed Followup labs tomorrow morning Mobilize out of bed D/C kang Awaiting transfer to floor visualized wound, clean and dry will follow 07/08/2018 POD #3 neurologically stable dc JERROD drain continue PT and mobilize OOB PT recs rehab- case mgt for dc planning to rehab <Janie Gardner - Last Filed: 07/08/18 10:36> - Attending Attestation July 08, 2018 I personally interviewed and examined the patient. I reviewed the documentation , laboratory evaluation, and the imaging. I discussed case with the neurosurgery team and we formulated a plan which is as described above. Patient appears to be clinically and neurologically stable. The JERROD drain will be discontinued today and arrangements can be made for discharge planning. He will probably be stable for discharge in the next several days. Neurosurgery will follow. <Mehdi Terrell - Last Filed: 07/08/18 17:21>
[2018-07-08] MEDS: amLODIPine 5 MG Tablet PO SCH (11:35)
[2018-07-08] MEDS: Senna/Docusate Sodium 8.6/50 MG Tablet PO SCH ×2 (11:35→20:23)
[2018-07-08] MEDS: Lisinopril 20 MG Tablet PO SCH (11:35)
[2018-07-09] MEDS: Senna/Docusate Sodium 8.6/50 MG Tablet PO SCH ×2 (09:12→21:52)
[2018-07-09] MEDS: Lisinopril 20 MG Tablet PO SCH (09:12)
[2018-07-09] MEDS: amLODIPine 5 MG Tablet PO SCH (09:12)
--- NOTE | 2018-07-09 12:02 | P.PNNS ---
Subjective Interval history: July 09, 2018 The patient has remained stable overnight. Does complain of increased urinary frequency. His neck pain persists but is improving. Physical Exam Vital signs: Vital Signs 07/08/18 15:25 07/08/18 20:20 07/09/18 00:20 Temperature 98.3 F 98.2 F 99.0 F Pulse Rate 87 81 78 Respiratory Rate 18 20 20 Blood Pressure 154/75 H 133/71 136/75 Pulse Oximetry 95 96 94 L 07/09/18 05:25 07/09/18 08:05 Temperature 98.3 F 97.5 F L Pulse Rate 79 80 Respiratory Rate 18 18 Blood Pressure 156/71 H 124/70 Pulse Oximetry 96 96 Intake & Output 07/08/18 07/09/18 07/09/18 18:59 06:59 18:59 Output Total 300 / 300 1600 / 1600 Balance -300 / -300 -1600 / -1600 Output: Urine 300 / 300 1600 / 1600 Other: Date of Last Bowel Movement 07/05/18 - Routine Neurological Exam July 09, 2018 The patient is lying in bed is into the room. His stands next to him. He is afebrile and his vital signs are stable. On neurological examination, mental status testing finds him to be awake and alert. He is oriented by 3. Cognitive functions grossly intact. His speech is fluent. Cranial nerve testing 2 through 12 is grossly intact. Motor examination finds power testing to be 5+/5+ throughout. Sensory examination intact to light touch and position throughout. He complains of some numbness in the fingertips in his right hand. He is ambulatory and continent. The wound is clear. - Urinary Catheter Management Indwelling Urethral Catheter Cath placed during this visit: yes, but has since been removed by the nurse Reason for continuing: Hourly intake/output Insertion date: 07/05/18 Insertion time: 08:50 Removal date: 07/07/18 Removal time: 10:00 Straight Cath placed during this visit: yes, but has since been removed by the nurse Reason for continuing: Not indwelling catheter Insertion date: 07/07/18 Insertion time: 20:30 Removal date: 07/07/18 Removal time: 20:50 Assessment and Plan - Plan 73 y/o male underwent Bilateral C5-C6-C7 and T1 laminectomies with foraminotomies with a posterior lateral fusion with spinal instrumented from C5 through T1 on 07/05/[address] Terrell 07/06/2018 POD #1 neurologically stable, postoperative CT Cervical spine reviewed by neurosurgical team, postop labs reviewed, stable continue current postoperative pain control continue wound draining PT, OT, start mobilizing out of bed transfer out of [facility] to 5 will follow 07/07/2018 POD#2 Maintaining JERROD drain, monitor output PT/OT Postop labs reviewed Followup labs tomorrow morning Mobilize out of bed D/C kang Awaiting transfer to floor visualized wound, clean and dry will follow 07/08/2018 POD #3 neurologically stable dc JERROD drain continue PT and mobilize OOB PT recs rehab- case mgt for dc planning to rehab Postoperative day #4 The patient is stable postoperatively. He has been accepted for a course of inpatient rehabilitation at [place] and is awaiting transfer when a bed becomes available. I will continue the present management. He needs continued physical therapy and occupational therapy as well as mobilization. I will also check a urinalysis. Neurosurgery will follow.
[2018-07-09 14:31] LABS: Amorphous Sediment,Urine Rare /hpf; Bacteria,Urine Rare /hpf; Bilirubin,Urine Negative (Negative); Clarity,Urine Cloudy (Clear); Color,Urine Yellow (Yellw/Straw); Glucose,Urine (UA) Negative (Negative); Leukocyte Esterase,Urine Negative (Negative); Mucus,Urine Few /lpf (Occasional); Nitrite,Urine Negative (Negative); Specific Gravity,Urine 1.013 (1.002-1.035); Squamous Epithelial Cell,Urine <1 /hpf (0-5)
[2018-07-10] MEDS: Lisinopril 20 MG Tablet PO SCH (09:27)
[2018-07-10] MEDS: amLODIPine 5 MG Tablet PO SCH (09:27)
[2018-07-10] MEDS: Senna/Docusate Sodium 8.6/50 MG Tablet PO SCH ×2 (09:27→20:45)
--- NOTE | 2018-07-10 13:10 | P.PNNS ---
Subjective Interval history: July 10, 2018 The patient has remained stable overnight. The neck pain and incisional pain is decreasing. He apparently does have some hallucinations with the narcotics. He really wants to go home but understands that he would benefit from rehabilitation. Physical Exam Vital signs: Vital Signs 07/09/18 15:55 07/09/18 21:12 07/10/18 01:29 Temperature 99.4 F 98.4 F 98.5 F Pulse Rate 85 83 76 Respiratory Rate 16 20 20 Blood Pressure 149/68 H 150/76 H 155/76 H Pulse Oximetry 94 L 95 94 L 07/10/18 05:39 07/10/18 08:00 Temperature 98.2 F 97.7 F Pulse Rate 75 75 Respiratory Rate 20 18 Blood Pressure 140/79 155/80 H Pulse Oximetry 96 95 Intake & Output 07/09/18 07/10/18 07/10/18 18:59 06:59 18:59 Output Total 750 / 750 Balance -750 / -750 Weight 144.4 kg Output: Urine 750 / 750 Other: # Voids 4 - Routine Neurological Exam July 10, 2018 Patient is lying in bed is into the room. His sits next to him. Mental status testing finds him to be awake and alert. He is oriented by 3. Cognitive functions grossly intact. His speech is fluent. Cranial nerve testing 2 through 12 is grossly intact. There were no focal motor nor sensory deficits. Patient complains of some numbness in his hands bilaterally. He also complains of unsteadiness of gait and some weakness in both lower extremities right greater than left which is chronic. He is continent of bowel and bladder. The wound is clear. The skin adam remain in place. - Urinary Catheter Management Indwelling Urethral Catheter Cath placed during this visit: yes, but has since been removed by the nurse Reason for continuing: Hourly intake/output Insertion date: 07/05/18 Insertion time: 08:50 Removal date: 07/07/18 Removal time: 10:00 Straight Cath placed during this visit: yes, but has since been removed by the nurse Reason for continuing: Not indwelling catheter Insertion date: 07/07/18 Insertion time: 20:30 Removal date: 07/07/18 Removal time: 20:50 Assessment and Plan - Plan 73 y/o male underwent Bilateral C5-C6-C7 and T1 laminectomies with foraminotomies with a posterior lateral fusion with spinal instrumented from C5 through T1 on 07/05/[address] Terrell 07/06/2018 POD #1 neurologically stable, postoperative CT Cervical spine reviewed by neurosurgical team, postop labs reviewed, stable continue current postoperative pain control continue wound draining PT, OT, start mobilizing out of bed transfer out of [facility] to will follow 07/07/2018 POD#2 Maintaining JERROD drain, monitor output PT/OT Postop labs reviewed Followup labs tomorrow morning Mobilize out of bed D/C kang Awaiting transfer to floor visualized wound, clean and dry will follow 07/08/2018 POD #3 neurologically stable dc JERROD drain continue PT and mobilize OOB PT recs rehab- case mgt for dc planning to rehab July 09, 2018 Postoperative day #4 The patient is stable postoperatively. He has been accepted for a course of inpatient rehabilitation at [place] and is awaiting transfer when a bed becomes available. I will continue the present management. He needs continued physical therapy and occupational therapy as well as mobilization. I will also check a urinalysis. Neurosurgery will follow. July 10, 2018 The patient is stable postoperative day #5. His urinalysis is not consistent with a urinary tract infection. Apparently, he is going to be transferred to [place] for inpatient rehabilitation either later today or tomorrow. Neurosurgery will follow.
[2018-07-11] MEDS: Senna/Docusate Sodium 8.6/50 MG Tablet PO SCH ×2 (08:50→20:56)
[2018-07-11] MEDS: Lisinopril 20 MG Tablet PO SCH (08:50)
[2018-07-11] MEDS: amLODIPine 5 MG Tablet PO SCH (08:50)
--- NOTE | 2018-07-11 13:34 | P.PNNS ---
Subjective Interval history: no new complaints, awaiting dc to [facility] hopefully today <Janie Gardner - Last Filed: 07/11/18 13:32> Physical Exam Vital signs: Vital Signs 07/10/18 16:59 07/10/18 20:44 07/11/18 01:18 Temperature 99.2 F 98.8 F 98.2 F Pulse Rate 79 77 75 Respiratory Rate 16 18 18 Blood Pressure 169/77 H 139/65 155/78 H Pulse Oximetry 94 L 95 95 07/11/18 04:33 07/11/18 07:44 07/11/18 11:50 Temperature 97.8 F 98.4 F 97.3 F L Pulse Rate 74 78 76 Respiratory Rate 18 20 18 Blood Pressure 159/75 H 170/79 H 147/71 H Pulse Oximetry 95 95 94 L Intake & Output 07/10/18 07/11/18 07/11/18 18:59 06:59 18:59 Output Total 300 / 300 Balance -300 / -300 Weight 110.5 kg Output: Urine 300 / 300 Other: # Incontinent Voids 1 Date of Last Bowel Movement 07/05/18 07/05/18 Narrative: July 11, 2018 Patient is lying in bed is into the room. His sits next to him. Mental status testing finds him to be awake and alert. He is oriented by 3. Cognitive functions grossly intact. His speech is fluent. Cranial nerve testing 2 through 12 is grossly intact. There were no focal motor nor sensory deficits. Patient complains of some numbness in his hands bilaterally. He also complains of unsteadiness of gait and some weakness in both lower extremities right greater than left which is chronic. He is continent of bowel and bladder. The wound is clear. The skin adam remain in place. - Urinary Catheter Management Indwelling Urethral Catheter Cath placed during this visit: yes, but has since been removed by the nurse Reason for continuing: Hourly intake/output Insertion date: 07/05/18 Insertion time: 08:50 Removal date: 07/07/18 Removal time: 10:00 Straight Cath placed during this visit: yes, but has since been removed by the nurse Reason for continuing: Not indwelling catheter Insertion date: 07/07/18 Insertion time: 20:30 Removal date: 07/07/18 Removal time: 20:50 <Janie Gardner - Last Filed: 07/11/18 13:32> Vital signs: Vital Signs 07/10/18 16:59 07/10/18 20:44 07/11/18 01:18 Temperature 99.2 F 98.8 F 98.2 F Pulse Rate 79 77 75 Respiratory Rate 16 18 18 Blood Pressure 169/77 H 139/65 155/78 H Pulse Oximetry 94 L 95 95 07/11/18 04:33 07/11/18 07:44 07/11/18 11:50 Temperature 97.8 F 98.4 F 97.3 F L Pulse Rate 74 78 76 Respiratory Rate 18 20 18 Blood Pressure 159/75 H 170/79 H 147/71 H Pulse Oximetry 95 95 94 L Intake & Output 07/10/18 07/11/18 07/11/18 18:59 06:59 18:59 Output Total 300 / 300 Balance -300 / -300 Weight 110.5 kg Output: Urine 300 / 300 Other: # Incontinent Voids 1 Date of Last Bowel Movement 07/05/18 07/05/18 - Urinary Catheter Management Indwelling Urethral Catheter Cath placed during this visit: no Straight Cath placed during this visit: no <Mehdi Terrell - Last Filed: 07/11/18 13:56> Assessment and Plan - Plan 73 y/o male underwent Bilateral C5-C6-C7 and T1 laminectomies with foraminotomies with a posterior lateral fusion with spinal instrumented from C5 through T1 on 07/05/[address] Terrell 07/06/2018 POD #1 neurologically stable, postoperative CT Cervical spine reviewed by neurosurgical team, postop labs reviewed, stable continue current postoperative pain control continue wound draining PT, OT, start mobilizing out of bed transfer out of [facility] to will follow 07/07/2018 POD#2 Maintaining JERROD drain, monitor output PT/OT Postop labs reviewed Followup labs tomorrow morning Mobilize out of bed D/C kang Awaiting transfer to floor visualized wound, clean and dry will follow 07/08/2018 POD #3 neurologically stable dc JERROD drain continue PT and mobilize OOB PT recs rehab- case mgt for dc planning to rehab July 09, 2018 Postoperative day #4 The patient is stable postoperatively. He has been accepted for a course of inpatient rehabilitation at [place] and is awaiting transfer when a bed becomes available. I will continue the present management. He needs continued physical therapy and occupational therapy as well as mobilization. I will also check a urinalysis. Neurosurgery will follow. July 10, 2018 The patient is stable postoperative day #5. His urinalysis is not consistent with a urinary tract infection. Apparently, he is going to be transferred to [place] for inpatient rehabilitation either later today or tomorrow. Neurosurgery will follow. July 11, 2018 POD #6 neuro stable awaiting bed placement at [facility] continue present care will follow <Janie Gardner - Last Filed: 07/11/18 13:32> - Attending Attestation July 11, 2018 I personally interviewed and examined the patient. I reviewed the documentation , laboratory evaluation, and the imaging. I discussed the case with the neurosurgery team and we formulated the plan. The patient apparently is awaiting availability of a bed for transfer for inpatient rehabilitation at [facility]. Neurosurgery will follow. <Mehdi Terrell - Last Filed: 07/11/18 13:56>
[2018-07-12] MEDS: amLODIPine 5 MG Tablet PO SCH (08:24)
[2018-07-12] MEDS: Senna/Docusate Sodium 8.6/50 MG Tablet PO SCH (08:24)
[2018-07-12] MEDS: Lisinopril 20 MG Tablet PO SCH (08:25)
--- NOTE | 2018-07-12 11:23 | P.PNNS ---
Subjective Interval history: patient lying in bed, pain well controlled. asking about rehab options with at bedside <Janie Gardner - Last Filed: 07/12/18 11:20> Physical Exam Vital signs: Vital Signs 07/11/18 11:50 07/11/18 15:36 07/11/18 21:00 Temperature 97.3 F L 98.8 F 98.1 F Pulse Rate 76 84 74 Respiratory Rate 18 18 20 Blood Pressure 147/71 H 130/72 164/79 H Pulse Oximetry 94 L 95 96 07/12/18 00:50 07/12/18 03:26 07/12/18 04:30 Temperature 98.1 F 98.0 F Pulse Rate 77 75 Respiratory Rate 20 18 20 Blood Pressure 138/78 135/73 Pulse Oximetry 95 95 07/12/18 07:42 Temperature 98.0 F Pulse Rate 72 Respiratory Rate 17 Blood Pressure 132/66 Pulse Oximetry 97 Intake & Output 07/11/18 07/12/18 07/12/18 18:59 06:59 18:59 Output Total 1000 / 1000 Balance -1000 / -1000 Weight 108.6 kg Output: Urine 1000 / 1000 Other: Date of Last Bowel Movement 07/05/18 07/05/18 # Bowel Movements 0 Narrative: Patient A&Ox3 [place] and follows reports unsteady gait denies any weakness or numbness in extremities bowel and bladder are intact - Urinary Catheter Management Indwelling Urethral Catheter Cath placed during this visit: yes, but has since been removed by the nurse Reason for continuing: Hourly intake/output Insertion date: 07/05/18 Insertion time: 08:50 Removal date: 07/07/18 Removal time: 10:00 Straight Cath placed during this visit: yes, but has since been removed by the nurse Reason for continuing: Not indwelling catheter Insertion date: 07/07/18 Insertion time: 20:30 Removal date: 07/07/18 Removal time: 20:50 <Janie Gardner - Last Filed: 07/12/18 11:20> Vital signs: Vital Signs 07/11/18 15:36 07/11/18 21:00 07/12/18 00:50 Temperature 98.8 F 98.1 F 98.1 F Pulse Rate 84 74 77 Respiratory Rate 18 20 20 Blood Pressure 130/72 164/79 H 138/78 Pulse Oximetry 95 96 95 07/12/18 03:26 07/12/18 04:30 07/12/18 07:42 Temperature 98.0 F 98.0 F Pulse Rate 75 72 Respiratory Rate 18 20 17 Blood Pressure 135/73 132/66 Pulse Oximetry 95 97 07/12/18 11:10 Temperature 97.3 F L Pulse Rate 76 Respiratory Rate 18 Blood Pressure 136/72 Pulse Oximetry 96 Intake & Output 07/11/18 07/12/18 07/12/18 18:59 06:59 18:59 Output Total 1000 / 1000 Balance -1000 / -1000 Weight 108.6 kg Output: Urine 1000 / 1000 Other: Date of Last Bowel Movement 07/05/18 07/05/18 # Bowel Movements 0 - Urinary Catheter Management Indwelling Urethral Catheter Cath placed during this visit: no Straight Cath placed during this visit: no <Mehdi Terrell - Last Filed: 07/12/18 15:01> Assessment and Plan - Plan 73 y/o male underwent Bilateral C5-C6-C7 and T1 laminectomies with foraminotomies with a posterior lateral fusion with spinal instrumented from C5 through T1 on 07/05/[address] Terrell 07/06/2018 POD #1 neurologically stable, postoperative CT Cervical spine reviewed by neurosurgical team, postop labs reviewed, stable continue current postoperative pain control continue wound draining PT, OT, start mobilizing out of bed transfer out of [facility] to will follow 07/07/2018 POD#2 Maintaining JERROD drain, monitor output PT/OT Postop labs reviewed Followup labs tomorrow morning Mobilize out of bed D/C kang Awaiting transfer to floor visualized wound, clean and dry will follow 07/08/2018 POD #3 neurologically stable dc JERROD drain continue PT and mobilize OOB PT recs rehab- case mgt for dc planning to rehab July 09, 2018 Postoperative day #4 The patient is stable postoperatively. He has been accepted for a course of inpatient rehabilitation at [place] and is awaiting transfer when a bed becomes available. I will continue the present management. He needs continued physical therapy and occupational therapy as well as mobilization. I will also check a urinalysis. Neurosurgery will follow. July 10, 2018 The patient is stable postoperative day #5. His urinalysis is not consistent with a urinary tract infection. Apparently, he is going to be transferred to [place] for inpatient rehabilitation either later today or tomorrow. Neurosurgery will follow. July 11, 2018 POD #6 neuro stable awaiting bed placement at [facility] continue present care will follow 07/12/2018 POD #7 neurologically unchanged discharge planning to [facility] vs. [facility] clear to discharge once arrangements made <Janie Gardner - Last Filed: 07/12/18 11:20> - Attending Attestation July 12, 2018 As above, I personally interviewed and examined the patient. I reviewed the documentation, laboratory evaluation, and the imaging. I discussed case with the neurosurgery team we formulated the plan which is as described above. The patient is waiting for rehab placement. Neurosurgery will follow. <Mehdi Terrell - Last Filed: 07/12/18 15:01>
[2018-07-12] MEDS ORDERED: Mineral Oil Enema 118 ML Bottle RECTAL ONE (16:00)
== END 2018-07-12 16:48 | DRG 473 ==
LOC: HSDI 05:51 → N03 19:00 → N05 07-07 21:33
PROVIDERS: ADMIT Surgery; ATTEND Surgery
CPT/HCPCS: 36430; 72125; 76000; 80048; 80053; 81001; 82805; 82948; 82962; 85025; 85027; 86850; 86900; 86901; 86923; 94150; 97110; 97116; 97162; 97167; 97535; C1713; C9290; J0131; J0330; J0690; J1100; J1940; J2270; J2370; J2405; J2704; J3370; J3411; J3480; J7030; J7040; J7050; J7120; L0172; L0200; P9016